=== PATIENT | male | born 1985 | race Caucasian/White ===

== ENCOUNTER 2020-10-10 16:39 | Emergency (ER) | payer OTHER, SELFPAY ==
[2020-10-10 17:47] VITALS: BP 120/70; PULSE 50; RESP 18; TEMP 37; O2SAT 100; BMI 21.5
--- NOTE | 2020-10-10 19:06 | PC.NURSE ---
KAYODE CHRISTIAN LOOK UP CHEMICAL WITH POISON CONTROL AND IT DOES NOT CONTAIN HYDROFLUORIC ACID SO WILL JUST FLUSH AREA WITH NS AND BACTRIAN WILL BE APPLIED.
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
[2020-10-10] MEDS: Bacitracin Oint 0.9 GM PACKET 1 APPL TOPICAL (19:10)
--- NOTE | 2020-10-10 19:30 | PC.NURSE ---
PT LEFT ROOM BEFORE D/C PAPERWORK WAS READY.
== END 2020-10-10 19:36 | disposition left against medical advice (07) ==
PROVIDERS: Emergency Provider Emergency Medicine
DX: Z04.2 Encounter for examination and observation following work accident (principal); T22.211A Burn of second degree of right forearm, initial encounter; T55.1X1A Toxic effect of detergents, accidental (unintentional), initial encounter; Y92.511 Restaurant or cafe as the place of occurrence of the external cause
CPT/HCPCS: 99283

== ENCOUNTER 2020-10-31 11:28 | Outpatient (REF) | payer MEDICAID, SELFPAY | END 2020-10-31 11:29 | disposition home or self-care (01) | LOC: HO.LAB 11:28 | PROVIDERS: Visit Provider Internal Medicine | DX: Z20.822 Contact with and (suspected) exposure to COVID-19 (principal) | CPT/HCPCS: C9803; U0003; U0005 ==

== ENCOUNTER 2024-11-21 18:10 | Emergency (ER) | payer OTHER, SELFPAY ==
[2024-11-21 18:23] VITALS: BP 155/83; PULSE 92; O2SAT 100; BMI 25.8
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
[2024-11-21 18:31] LABS: Glucose, Whole Blood 211 mg/dL (60-115)
[2024-11-21 18:42] VITALS: BP 113/64; PULSE 78; RESP 15; TEMP 36.9; O2SAT 99
[2024-11-21 19:55] VITALS: BP 113/64; PULSE 78; RESP 15; TEMP 36.9; O2SAT 99
[2024-11-21] MEDS: Naloxone HCl Nasal TAKE HOME 4 MG SPRAY 8 MG NOSTRILALT (20:03)
== END 2024-11-21 20:14 | disposition home or self-care (01) ==
PROVIDERS: Emergency Provider Emergency Medicine Emergency Medical Services
DX: T40.411A Poisoning by fentanyl or fentanyl analogs, accidental (unintentional), initial encounter (principal); R40.4 Transient alteration of awareness; Y92.89 Other specified places as the place of occurrence of the external cause
CPT/HCPCS: 82947; 99284

== ENCOUNTER 2024-12-06 15:09 | Outpatient (AMB) | payer OTHER, SELFPAY ==
--- NOTE | 2024-12-06 15:13 | MHC.PC.OV ---
Vital Signs 12/06/24 15:20 Height 6 ft Weight 159 lb BMI 21.6 BP 118/56 L Blood Pressure Location Rt brachial Position Sitting Respiration 16 Pulse 58 Pulse Source Pulse Oximeter Temp 97.7 F Temp Source Temporal Artery Scan Pulse Oximetry (%) 98 Oxygen Delivery Method Room Air Intake Visit Reasons: New Patient Supervisor Clam Bed Required: No Accompanied by: Self / Same As Patient Allergies No Known Allergies Allergy (Verified 12/06/24 15:13) Medication List - Last Reconciled 12/06/24 by KAYODE Lopez albuterol sulfate 90 mcg/actuation (Ventolin HFA) 2 puffs inhalation Q4-6H PRN cetirizine (All Day Allergy (cetirizine)) 10 mg PO DAILY gabapentin 300 mg PO BID hydrocortisone 1% 1 appl topical BID PRN Tobacco use date assessed: 12/06/24 Dental Screening Dental Screen Date: 12/06/24 Did you have a dental visit in the last 12 months?: No Did you have a dental problem in the last 6 months where you did not have access to dental care?: Yes Was dental information given to patient?: Yes HPI HPI Comments History of Present Illness Details The patient is a 39-year-old male with AR, right knee pain, neuropathy of right leg and history of substance use presenting to establish care and follow up with nerve damage in the leg and chronic knee swelling. Patient has not been established with a PCP for several years. He was last seeing a PCP in [place]. The patient reports a history of nerve damage in the right leg following a torn medial collateral ligament (MCL) sustained while playing basketball. The injury led to an infection requiring surgical intervention to drain the affected area, resulting in persistent nerve damage. He was taking Gabapentin 400mg BID for the Neuropathy with good results The patient experiences intermittent swelling and pain in the knee, which occasionally requires elevation to alleviate symptoms. The patient has a history of allergic rhinitis, with symptoms including dry, itchy eyes and enlarged tonsils, likely due to postnasal drip. He has previously used Claritin with partial relief. The patient denies current smoking but has a history of marijuana use, which ceased four years ago. He also reports occasional use of Percocet, with the last use occurring months ago. He states he drinks Alcohol on the weekends. He has not had labs in several years ago. He was seen in the ER 11/21 after being found unresponsive by EMS. He admitted to using Heroin. He states he does not remember that today. He denies referral for substance abuse treatment. Patient was informed and verbally consented to the use of an ambient scribe for clinic note documentation during this visit. [facility] Medical History (Updated 12/08/24 @ 10:23 by KAYODE Lopez) Alcohol use Allergic rhinitis Health care maintenance History of substance use Neuropathy of right lower extremity Right knee pain Routine screening for STI (sexually transmitted infection) Stiffness of sacroiliac joint Social History (Updated 12/06/24 @ 16:26 by KAYODE Lopez) Housing: Apartment Alcohol intake: current Alcohol intake frequency: a few times a week Patient Tobacco Use Status: Never used Tobacco e-Cigarette/Vaping Use: Never Used Substance Use Type: Heroin service: No Current occupational status: unemployed Questionnaire AUDIT C Alcohol Use Questionnaire (AUDIT-C) 1. How often do you have a drink containing alcohol?: 2-3 times a week 2. How many drinks containing alcohol do you have on a typical day when you are drinking?: 3 or 4 Total Score: 4 Review of Systems Const Details: CONSTITUTIONAL Negative HEAD/NECK Negative EAR/NOSE/MOUTH/THROAT nasal congestion Itchy eyes RESPIRATORY Reports dry cough, denies chest pain or shortness of breath CARDIOVASCULAR Negative GASTROINTESTINAL Negative MUSCULOSKELETAL Reports intermittent knee swelling and pain, denies other joint pain NEUROLOGICAL Numbness and burning pain in right lower leg PSYCHIATRIC History of substance abuse Alcohol use Physical exam (Primary Care) Vital Signs: Last Vital Signs Temp 97.7 F 12/06/24 15:20 Pulse 58 12/06/24 15:20 Resp 16 12/06/24 15:20 BP 118/56 L 12/06/24 15:20 Pulse Ox 98 12/06/24 15:20 Oxygen Delivery Method Room Air 12/06/24 15:20 BMI result Body Mass Index 21.6 GENERAL Well developed, Well nourished, in no apparent distress HEENT Head-Normocephalic Eyes- PERRLA, EOMI, Conjuctiva clear, lids WNL Ears- Canals clear, TMs WNL Nasal- congested Mouth/Throat-No lesions, no erythema, no exudate, clear postnasal drip Neck- Supple, No lymphadenopathy, thyroid WNL RESPIRATORY Normal I:E, Clear to auscultation CARDIOVASCULAR Regular, rate and rhythm, No murmurs or rubs GASTROINTESTINAL Soft, nontender, normal bowel sounds, no masses MUSCULOSKELETAL Back- nontender Right knee- Full ROM, tender at joint line, no effusion, DTR 2+ NEUROLOGICAL Gait normal PSYCHIATRIC Oriented to person, place and time Mood and affect WNL Appearance WNL Speech WNL Thought processes WNL Tobacco/Smoking Status: Tobacco use Status Tobacco use date assessed 12/06/24 12/06/24 15:23 Patient Tobacco Use Status Never used Tobacco 12/06/24 15:23 e-Cigarette/Vaping Use Never Used 12/06/24 15:23 Coding Level of Care Code New Pt New Pt Level 4 (41945) Patient Type New Diagnoses Neuropathy of right lower extremity G57.91 Right knee pain M25.561 Seasonal allergic rhinitis due to pollen J30.1 Allergic rhinitis seasonality: seasonal Allergic rhinitis trigger: pollen History of substance use Z87.898 Alcohol use F10.90 Health care maintenance Z00.00 Time Spent (min) 30 Comment Time spent on chart review, medication reconciliation, H&P, patient education, orders Assessment & Plan Assessment & Plan (1) Neuropathy of right lower extremity: Code(s): G57.91 - Unspecified mononeuropathy of right lower limb Category: Medical Plan: Discussed restarting Gabapentin. The patient will be started on gabapentin 300 mg twice daily to manage nerve pain, with adjustments as needed based on response and tolerance. An x-ray of the knee is recommended to assess the current condition and guide further management. Patient to follow up in 8 weeks or sooner if symptoms persist or worsen. (2) Right knee pain: Code(s): M25.561 - Pain in right knee Category: Medical Plan: The patient will undergo an x-ray of the knee to evaluate the cause of swelling and guide further treatment. Patient to follow up in 8 weeks or sooner if symptoms persist or worsen. (3) Allergic rhinitis: Code(s): J30.9 - Allergic rhinitis, unspecified Category: Medical Qualifiers: Allergic rhinitis seasonality: seasonal Allergic rhinitis trigger: pollen Qualified Code(s): J30.1 - Allergic rhinitis due to pollen Plan: Will start Cetirizine for AR. Patient to follow up in 8 weeks or sooner if symptoms persist or worsen. (4) History of substance use: Code(s): Z87.898 - Personal history of other specified conditions Category: Medical Plan: Patient denies recent substance use. (5) Alcohol use: Code(s): F10.90 - Alcohol use, unspecified, uncomplicated Category: Social Hx Plan: Patient is drinking alcohol moslty on weekends (6) Health care maintenance: Code(s): Z00.00 - Encounter for general adult medical examination without abnormal findings Category: Medical Plan: Will get labs. Patient to follow up in 2 months. Plan I discussed with the patient the plan to start gabapentin for nerve pain management, emphasizing the need for dosage adjustments based on tolerance and effectiveness. We also reviewed the use of cetirizine for allergy management and the application of a topical cream for dry eyes. The importance of follow-up in eight weeks to assess the response to treatment and review diagnostic results was highlighted. Orders: Orders Complete Blood Count no Diff 12/06/24 Z00. - Encounter for general adult medical examination without abnormal findings Comprehensive Met. Panel 12/06/24 Z00.00 - Encounter for general adult medical examination without abnormal findings HIV Ab/Ag 12/06/24 Z11.3 - Encounter for screening for infections with a predominantly sexual mode of transmission Syphilis Screen 12/06/24 Z11.3 - Encounter for screening for infections with a predominantly sexual mode of transmission TSH reflex Free T4 12/06/24 Z00.00 - Encounter for general adult medical examination without abnormal findings Hepatitis C Antibody Reflex 12/06/24 Z11.3 - Encounter for screening for infections with a predominantly sexual mode of transmission CT NG by PCR Urine 12/06/24 Z11.3 - Encounter for screening for infections with a predominantly sexual mode of transmission Lipid Panel 12/06/24 Z00.00 - Encounter for general adult medical examination without abnormal findings, Z13.220 - Encounter for screening for lipoid disorders XR knee RT 2V 12/06/24 M25.561 - Pain in right knee Medications: New gabapentin 300 mg PO BID 60 caps 1RF for nerve pain hydrocortisone 1% 1 appl topical BID PRN 28.35 grams 0RF skin irritation under eye cetirizine (All Day Allergy (cetirizine)) 10 mg PO DAILY 90 tabs 1RF for allergies Discontinued bacitracin Discontinued Reason: Patient Completed Course 1 appl topical BID 30 grams 0RF naproxen Discontinued Reason: Patient Completed Course 500 mg PO BID PRN 20 tabs 0RF pain Patient Instructions: - Take gabapentin 300 mg twice daily as prescribed. - Use cetirizine once daily at bedtime for allergies. - Apply the prescribed cream to alleviate dry, itchy eyes. - Visit the hospital for blood work and a knee x-ray. - Schedule a follow-up appointment in eight weeks to review treatment progress and test results.
[2024-12-06 15:20] VITALS: BP 118/56; PULSE 58; RESP 16; TEMP 36.5; O2SAT 98; BMI 21.6
== END 2024-12-06 16:19 | disposition home or self-care (01) ==
PROVIDERS: PCP Physician Assistant Medical; Visit Provider Physician Assistant Medical
DX: G57.91 Unspecified mononeuropathy of right lower limb (principal); M25.561 Pain in right knee; J30.1 Allergic rhinitis due to pollen; Z87.898 Personal history of other specified conditions; F10.90 Alcohol use, unspecified, uncomplicated

== ENCOUNTER → 2024-12-06 15:09 | Outpatient (BNVA) | payer OTHER, SELFPAY | PROVIDERS: Visit Provider Physician Assistant Medical | DX: G57.91 Unspecified mononeuropathy of right lower limb (principal); J30.1 Allergic rhinitis due to pollen; M25.561 Pain in right knee; F10.90 Alcohol use, unspecified, uncomplicated | CPT/HCPCS: 99202 ==

== ENCOUNTER 2024-12-15 22:46 | Emergency (ER) | payer OTHER, SELFPAY ==
[2024-12-15 23:00] VITALS: BP 180/80; PULSE 76; RESP 18; TEMP 36.4; O2SAT 97; BMI 21.0
[2024-12-15 23:22] LABS: Appearance Urine Clear; Glucose Urine UA Negative (Negative); PH 5.5 (5.0-9.0); Specific Gravity - Urine 1.025 (1.005-1.025)
[2024-12-16 05:54] LABS: CT PCR Urine NOT DETECTED (Not Detect.); NG PCR Urine NOT DETECTED (Not Detect.)
== END 2024-12-16 00:26 | disposition left against medical advice (07) ==
PROVIDERS: Emergency Provider Emergency Medicine; PCP Physician Assistant Medical
DX: H57.89 Other specified disorders of eye and adnexa (principal); Z53.21 Procedure and treatment not carried out due to patient leaving prior to being seen by health care provider
CPT/HCPCS: 81003; 87491; 87591; 99281; 99282

== ENCOUNTER 2024-12-18 11:08 | Emergency (ER) | payer OTHER, SELFPAY ==
[2024-12-18 11:29] VITALS: BP 143/67; PULSE 77; RESP 20; TEMP 36.9; O2SAT 95; BMI 20.5
--- NOTE | 2024-12-18 11:30 | ED_ITS ---
HPI - General Adult General Chief complaint: Eye Problems Stated complaint: swollen eye Time Seen by Provider: 12/18/24 11:55 Source: patient Mode of arrival: ambulatory Limitations: no limitations History of Present Illness ED Provider: Dr. Fonseca [facility] narrative: 39-year-old male presented hospital today for evaluation of left eye redness and drainage. Patient is also complaining of penile dysuria and discharge. Patient stated that this has been going on for a couple of days now. Patient stated he is having drainage from the left eye. It is painful. Has not taken any medicine for this. Has not been taking any antibiotics. Patient stated he had tested for STD with recently which was negative. He does have a primary care doctor here. Related Data Home Medications ?Medication ?Instructions ?Recorded ?Confirmed albuterol sulfate 90 mcg/actuation 2 puff inhalation Q 4-6H PRN 12/06/24 12/06/24 aerosol inhaler (Ventolin HFA) Previous Rx's ?Medication ?Instructions ?Recorded cetirizine 10 mg tablet (All Day 10 mg PO DAILY for al lergies #90 12/06/24 Allergy (cetirizine)) tabs gabapentin 300 mg capsule 300 mg PO BID for nerve pain #60 12/06/24 caps hydrocortisone 1 % topical cream 1 appl topical BID OK N skin 12/06/24 irritation under eye #28.35 grams cephalexin 500 mg capsule 500 mg PO TID 7 days #21 cap s 12/18/24 doxycycline hyclate 100 mg capsule 100 mg PO BID 7 day s #14 caps 12/18/24 erythromycin 5 mg/gram (0.5 %) eye 1 appl ophthalmic-L eft BID #3.5 12/18/24 ointment grams Allergies Allergy/AdvReac Type Severity Reaction Status Date / Time No Known Allergies Allergy Verified 12/18/24 11:34 Review of Systems 2 Review of Systems: Pertinent review of systems as mentioned in [facility]. All other system otherwise negative. [facility] Past Medical History Attestation statement: The following information was validated with the patient. [facility] Narrative: Medical history as mentioned in [facility] Medical History (Updated 12/18/24 @ 12:19 by Tyesha Fonseca DO) Alcohol use History of substance use Allergic rhinitis Neuropathy of right lower extremity Right knee pain Routine screening for STI (sexually transmitted infection) Stiffness of sacroiliac joint Health care maintenance Social History Social History (Updated 12/06/24 @ 16:26 by KAYODE Lopez) Housing: Apartment Alcohol intake: current Alcohol intake frequency: a few times a week Patient Tobacco Use Status: Never used Tobacco e-Cigarette/Vaping Use: Never Used Substance Use Type: Heroin Advance Directives: No Advance Directives Information Provided: No Do you have a plan to hurt others: No Plan service: No Current occupational status: unemployed Physical Exam ED Exam Exam: General: Pleasant, no distress, interacting appropriately Head: Normacephalic, atraumatic ENT: oral mucosa moist, neck supple, no tracheal deviation Gastrointestinal: Soft, non distended, non tender, non guarding Neurological: Awake and alert, no facial droop noted, patient pupils PERRLA, EOMI, it is red there is some drainage appreciated on the medial canthus. Vision intact Skin: Warm and dry Psychiatric: Appropriate mood and thoughts Vital Signs: Vital Signs - 24 hr 12/18/24 11:29 12/18/24 12:41 Temperature 98.4 F 98.4 F Pulse Rate 77 77 Respiratory Rate 20 20 Blood Pressure 143/67 H 143/67 H Pulse Oximetry 95 95 Oxygen Delivery Method Room Air Room Air BMI result Body Mass Index 20.5 Course Course Course Narrative: Medical screening exam performed. Please refer to detailed history, exam, evaluation, and management by primary provider. Patient presented on December 15 however left without being seen. Urinalysis negative at that time. Continues to report dysuria as well as penile discharge. Also reporting left eye pain and drainage. No vision loss. JS Medications Administered Discontinued Medications Generic Name Dose Route Start Last Admin Trade Name Landen PRN Reason Stop Dose Admin Acetaminophen 975 mg 12/18/24 12:17 12/18/24 12:36 Acetaminophen 325 Mg Tablet PO 12/18/24 12:18 975 mg ONCE ONE Administration Ceftriaxone Sodium 500 mg/ 0 mg 12/18/24 12:13 12/18/24 12:38 Lidocaine HCl 1 ml IM 12/18/24 12:14 500 kit ONCE ONE Administration Doxycycline Monohydrate 100 mg 12/18/24 12:13 12/18/24 12:36 Doxycycline Monohydrate 100 Mg Capsule PO 12/18/24 12:14 100 mg ONCE ONE Administration Ibuprofen 600 mg 12/18/24 12:17 12/18/24 12:36 Ibuprofen 600 Mg Tablet PO 12/18/24 12:18 600 mg ONCE ONE Administration Medical Decision Making Medical Decision Making [facility] Narrative: 39-year-old male presented hospital today for left eye pain redness and drainage. Also complaining of penile discharge. And dysuria. Patient stated that he is sexually active with multiple partners. He is complaining of dysuria after urinating. Patient is also complaining of left eye redness and pain. Ridging started as a redness. However has progressed. He has been trying to take Visine [id number] without any alleviation. We will plan to give patient IM ceftriaxone, start him on a course of doxycycline. We will plan to prescribe some Keflex to take for coverage of periorbital cellulitis and possible UTI. UA did show some signs of UTI. Patient will be discharged with close outpatient follow up. He agrees and understands this plan. Gonorrhea and chlamydia test was -3 days ago. We will plan to recent these as well. I suspect he likely has UTI. Differential Diagnosis Differential Diagnoses: The differential diagnosis associated with the presentation includes UTI, periorbital cellulitis, stye, bacterial conjunctivitis Lab Data [facility] Lab Attestation statement: I reviewed the patient's lab results. 12/18/24 11:45 12/18/24 11:45 Labs: Lab Results 12/18/24 Range/Units 11:45 WBC 5.3 (4.8-10.8) X10*3/uL RBC 4.30 L (4.60-5.80) X10*6/uL Hgb 13.2 L (14.0-18.0) g/dl Hct 37.3 L (42.0-52.0) % MCV 86.7 (80.0-98.0) fL MCH 30.7 (27.0-33.0) pg MCHC 35.4 (31.0-36.0) g/dl RDW 12.7 (11.0-16.0) % Plt Count 266 (160-400) X10*3/uL MPV 9.0 L (9.4-12.4) fL Immature Gran % (Auto) 0.4 (0.0-0.4) % Neut % (Auto) 70.4 (45-73) % Lymph % (Auto) 17.7 L (20-40) % [place] % (Auto) 11.1 H (2-11) % Eos % (Auto) 0.2 (0-4) % Baso % (Auto) 0.2 (0-2) % Lymph # (Auto) 0.9 L (1.2-4.9) X10*3/uL [place] # (Auto) 0.6 (0.1-1.2) X10*3/uL Eos # (Auto) 0.0 (0.0-0.4) X10*3/uL Baso # (Auto) 0.0 (0.0-0.2) X10*3/uL Abs Immat Gran (auto) 0.02 (0.00-0.03) X10*3/uL Absolute Neuts (auto) 3.7 (2.0-8.3) x10*3/uL Absolute Nucleated RBC 0.000 (0.0-0.012) X10*3/uL Nucleated RBC % (auto) 0.0 (0.0-0.2) /100WBC Sodium 138 (135-145) mmol/L Potassium 4.1 (3.3-5.1) mmol/L Chloride 105 (96-108) mmol/L Carbon Dioxide 27 (22-29) mmol/L Anion Gap 10 L (12-20) BUN 17 H (9-16) mg/dL Creatinine 0.78 (0.5-1.4) mg/dL Estim Creat Clear Calc 122.1 Estimated GFR > 60 Random Glucose 102 (60-115) mg/dL Calcium 9.1 (8.4-10.2) mg/dL Total Bilirubin 0.7 (0.0-1.0) mg/dL AST 32 (5-37) U/L ALT 20 (0-40) U/L Alkaline Phosphatase 85 (39-117) U/L Total Protein 7.5 (6.5-8.0) g/dL Albumin 4.5 (3.5-5.0) g/dL Urine Color Yellow Urine Appearance Clear Urine pH 6.5 (5.0-9.0) Ur Specific [place] >= 1.030 H (1.005-1.025) Urine Protein 30 (1+) H (Neg-Trace) mg/dL Urine Glucose (UA) Negative (Negative) mg/dL Urine Ketones Negative (Negative) mg/dL Urine Blood Negative (Negative) Urine Nitrite Negative (Negative) Ur Leukocyte Esterase Small (1+) H (Negative) Urine RBC 0-2 (0-2) /HPF Urine WBC >50 H (0-5) /HPF Ur Squamous Epith Cells 0-2 (0-2) /HPF Urine Bacteria None Seen (None Seen) Hyaline Casts 0-2 (0-2) /LPF Ur N gonorrhoeae DNA (PCR) NOT DETECTED (Not Detect.) Ur Chlamydia DNA (PCR) NOT DETECTED (Not Detect.) Discharge Plan Discharge Clinical Impression: Dysuria, Acute UTI Acute bacterial conjunctivitis Qualifiers: Laterality: left Qualified Code(s): H10.32 - Unspecified acute conjunctivitis, left eye Periorbital cellulitis Qualifiers: Laterality: left Qualified Code(s): L03.213 - Periorbital cellulitis Patient Disposition: Home, Self-Care Instructions: Periorbital Cellulitis (ED) Additional Instructions: Call to follow up with your primary care doctor in a week to ensure you are feeling better. I suspect you have a bacterial conjunctivitis with signs of periorbital cellulitis. You may have a UTI based on your urinalysis. Take the antibiotic and use the ointment. This should take care of your UTI and eye infection. Prescriptions: New doxycycline hyclate 100 mg capsule 100 mg PO BID 7 Days Qty: 14 0RF cephalexin 500 mg capsule 500 mg PO TID 7 Days Qty: 21 0RF erythromycin 5 mg/gram (0.5 %) ointment 1 appl ophthalmic-Left BID Qty: 3.5 0RF No Action albuterol sulfate [Ventolin HFA] 90 mcg/actuation HFA aerosol inhaler 2 puff inhalation Q4-6H PRN cetirizine [All Day Allergy (cetirizine)] 10 mg tablet 10 mg PO DAILY Qty: 90 1RF hydrocortisone 1 % cream 1 appl topical BID PRN (Reason: skin irritation under eye) Qty: 28.35 0RF gabapentin 300 mg capsule 300 mg PO BID Qty: 60 1RF Interventions: ED Discharge Assessment Last Done: 12/18/24 12:41 Discharge Date/Time: 12/18/24 12:42 Print Language: Azeri
[2024-12-18 11:56] LABS: MANUAL DIFF FLAG NO
[2024-12-18 11:59] LABS: Hematocrit 37.3 % (42.0-52.0); Hemoglobin 13.2 g/dl (14.0-18.0); Imm Gran Abs Auto 0.02 X10*3/uL (0.00-0.03); Imm Gran Pct Auto 0.4 % (0.0-0.4); Lymphocytes Absolute Auto 0.9 X10*3/uL (1.2-4.9); Mean Corpuscular HGB Conc 35.4 g/dl (31.0-36.0); Mean Corpuscular Hemoglobin 30.7 pg (27.0-33.0); Mean Corpuscular Volume 86.7 fL (80.0-98.0); NRBC Abs Auto 0.000 X10*3/uL (0.0-0.012); NRBC Pct Auto 0.0 /100WBC (0.0-0.2); Platelet Count 266 X10*3/uL (160-400); Red Blood Count 4.30 X10*6/uL (4.60-5.80); White Blood Count 5.3 X10*3/uL (4.8-10.8)
[2024-12-18 12:00] LABS: Appearance Urine Clear; Glucose Urine UA Negative (Negative); PH 6.5 (5.0-9.0); Specific Gravity - Urine >= 1.030 (1.005-1.025); UMIC TRIGGER UA YES
[2024-12-18 12:10] LABS: Alanine Aminotransferase 20 U/L (0-40); Albumin Level 4.5 g/dL (3.5-5.0); Alkaline Phosphatase 85 U/L (39-117); Anion Gap 10 (12-20); Aspartate Amino Transferase 32 U/L (5-37); Blood Urea Nitrogen 17 mg/dL (9-16); Calcium 9.1 mg/dL (8.4-10.2); Carbon Dioxide 27 mmol/L (22-29); Chloride 105 mmol/L (96-108); Creatinine Clr Calc Pharmacy 122.1; Estimated Glomerular Filt Rate > 60; Potassium 4.1 mmol/L (3.3-5.1); Sodium 138 mmol/L (135-145); Total Protein 7.5 g/dL (6.5-8.0)
[2024-12-18] MEDS: cefTRIAXone sodium 500 MG, Lidocaine HCl 1 % MPF 1 ML IM (12:38)
[2024-12-18 12:41] VITALS: BP 143/67; PULSE 77; RESP 20; TEMP 36.9; O2SAT 95
[2024-12-18 14:51] LABS: CT PCR Urine NOT DETECTED (Not Detect.); NG PCR Urine NOT DETECTED (Not Detect.)
== END 2024-12-18 12:42 | disposition home or self-care (01) ==
PROVIDERS: Physician Assistant; Emergency Provider Student in an Organized Health Care Education/Training Program
DX: N39.0 Urinary tract infection, site not specified (principal); L03.213 Periorbital cellulitis; R30.0 Dysuria; H10.32 Unspecified acute conjunctivitis, left eye
CPT/HCPCS: 36415; 80053; 81001; 81003; 85025; 87491; 87591; 96372; 99283; 99284; J0696; J2003